=== PATIENT | female | born 1995 | race Caucasian/White ===

== ENCOUNTER 2020-04-02 01:11 | Outpatient (CLI) | payer SELFPAY ==
[2020-04-02 14:01] LABS: HCT 39.9 % (36.0-46.0); HGB 13.2 g/dL (12.0-15.5); Mean Corp. HGB Concentration 33.1 g/dL (32.0-36.0); Mean Corpuscular Hemoglobin 29.6 pg (27.0-33.0); Mean Corpuscular Volume 89.5 fL (80-95); Platelet Count 471 x1000/uL (130-400); RBC 4.46 m/cumm (4.00-5.20); RBC Distribution Width 14.5 % (11.7-14.6); White Blood Cell Count 13.51 k/cumm (4.4-10.8)
[2020-04-02 14:36] LABS: ALT 25 U/L (14-59); AST 12 U/L (15-37); Alkaline Phosphatase 88 U/L (46-116); Anion Gap 15.2 mmol/L (3-11); BUN 15 mg/dL (7-18); Bilirubin, Total 0.2 mg/dL (0.2-1.0); C-Reactive Protein 16.35 mg/dL (0.0-0.3); CO2 16.8 mmol/L (21.0-32.0); CREATININE 1.79 mg/dL (0.55-1.02); Chloride 106 mmol/L (98-107); Glucose 125 mg/dL (74-106); Sodium 138 mmol/L (136-145); TSH (W/Ref FT4) 4.01 uIU/mL (0.36-3.74); Total Protein 7.2 g/dL (6.4-8.2)
[2020-04-02 14:51] LABS: Vitamin D 25 Total 35.5 ng/ml (30-100)
[2020-04-02 14:53] LABS: FREE T4 1.13 ng/dL (0.76-1.46)
[2020-04-02 15:31] LABS: ESR 90 mm/hr (0-20)
[2020-04-02 21:06] LABS: Rheumatoid Factor 22.3 IU/mL (<12.0)
[2020-04-03 10:51] LABS: Lyme Ab w Rflx to Lyme Confirm Negative (Negative)
[2020-04-03 15:33] LABS: ANA Interpretation Negative (Negative)
== END 2020-04-02 01:31 ==
PROVIDERS: PCP Nurse Practitioner; Visit Provider Nurse Practitioner
DX: M25.50 Pain in unspecified joint (principal); M79.10 Myalgia, unspecified site
CPT/HCPCS: 80053; 82306; 85027; 85652; 84439; 84443; 86038; 86140; 86431; 86618

== ENCOUNTER 2020-04-03 13:36 | Outpatient (CLI) | payer SELFPAY ==
[2020-04-03 14:47] LABS: Creatine Kinase 29 U/L (26-192)
[2020-04-03 14:50] LABS: PROTEIN 109.8 mg/dL
[2020-04-03 14:52] LABS: COMMENT (LAB VIEW ONLY) 79.26 mg/dL; Potassium 2.6 mmol/L (3.5-5.1); Prot/Crea Ur Ratio 1.38
[2020-04-04 10:25] LABS: C3 Complement 168 mg/dL (81-157); C4 Complement 35 mg/dL (13-39)
[2020-04-04 15:34] LABS: Chlamydia Result Negative (Negative); GC Result Negative (Negative)
[2020-04-05 12:33] LABS: dsDNA Ab, IgG <12.3 IU/mL (<30.0)
== END 2020-04-03 13:56 ==
PROVIDERS: PCP Nurse Practitioner; Visit Provider Family Medicine
DX: R79.9 Abnormal finding of blood chemistry, unspecified (principal); Z11.3 Encounter for screening for infections with a predominantly sexual mode of transmission; E87.6 Hypokalemia; R53.83 Other fatigue
CPT/HCPCS: 36415; 82550; 87491; 87591; 82565; 84132; 84156; 86160; 86225

== ENCOUNTER 2020-04-05 07:14 | Outpatient (CLI) | payer SELFPAY ==
[2020-04-05 09:42] LABS: Anion Gap 15.4 mmol/L (3-11); BUN 13 mg/dL (7-18); CO2 15.6 mmol/L (21.0-32.0); CREATININE 1.56 mg/dL (0.55-1.02); Calcium 10.2 mg/dL (8.5-10.1); Chloride 105 mmol/L (98-107); Estimated GFR 40.44 (mL/min/1.73m2); Glucose 88 mg/dL (74-106); Potassium 3.1 mmol/L (3.5-5.1); Sodium 136 mmol/L (136-145)
[2020-04-05 18:17] LABS: Cortisol (Baseline) 11 ug/dL (4-23)
[2020-04-06 11:39] LABS: HIV-1/2 Ag & Ab Screen Negative (Negative); Hepatitis A Antibody IgM Negative (Negative); Hepatitis B Core Antibody Negative (Negative); Hepatitis B surface Ag Negative (Negative); Hepatitis C Ab w Rflx HCV PCR Negative (Negative)
[2020-04-09 13:58] LABS: Cryoglobulin, S Negative %ppt (Negative)
== END 2020-04-05 07:34 ==
PROVIDERS: PCP Nurse Practitioner; Visit Provider Nurse Practitioner
DX: E87.6 Hypokalemia (principal); R79.9 Abnormal finding of blood chemistry, unspecified; N17.9 Acute kidney failure, unspecified; Z11.59 Encounter for screening for other viral diseases; Z11.4 Encounter for screening for human immunodeficiency virus [HIV]
CPT/HCPCS: 36415; 80048; 80400; 86704; 86709; 86803; 87340; 87389; 82595

== ENCOUNTER 2021-03-07 02:43 | Outpatient (CLI) | payer MEDICAID, SELFPAY ==
[2021-03-07 11:01] LABS: HCT 42.8 % (36.0-46.0); MCH 28.6 pg (27.0-33.0); MCHC 32.7 % (32.0-36.0); MCV 87.5 fL (80-95); Platelet Count 321 10^3/uL (130-400); RBC 4.89 10^6/uL (3.93-5.22); RDW 13.4 % (11.7-14.6); RDW-SD 42.8 fL; WBC 8.84 10^3/uL (4.4-10.8)
[2021-03-07 12:05] LABS: ALT 30 U/L (14-59); AST 6 U/L (15-37); Albumin 3.2 g/dL (3.4-5.0); Alkaline Phosphatase 87 U/L (46-116); Anion Gap 9.7 mmol/L (3-11); BUN 8 mg/dL (7-18); Bilirubin, Total 0.2 mg/dL (0.2-1.0); CO2 24.3 mmol/L (21.0-32.0); CREATININE 1.3 mg/dL (0.55-1.02); Chloride 109 mmol/L (98-107); Estimated GFR 49.51 (mL/min/1.73m2); Glucose 65 mg/dL (74-106); Potassium 3.5 mmol/L (3.5-5.1); Sodium 143 mmol/L (136-145); Total Protein 6.8 g/dL (6.4-8.2)
== END 2021-03-07 02:44 | disposition home or self-care (01) ==
LOC: LBO 02:43
PROVIDERS: PCP Nurse Practitioner; Visit Provider Nurse Practitioner
DX: N11.8 Other chronic tubulo-interstitial nephritis (principal); R79.89 Other specified abnormal findings of blood chemistry
CPT/HCPCS: 36415; 80053; 85027

== ENCOUNTER 2021-04-03 12:54 | Outpatient (REF) | payer MEDICAID, SELFPAY ==
[2021-04-06 11:14] LABS: Amphetamine 324 ng/mL (Cutoff: 25); Amphetamines Interpretation Positive.; MDA (Ecstasy Metabolite) Negative ng/mL (Cutoff: 25); MDMA (Ecstasy) Negative ng/mL (Cutoff: 25); Methamphetamine Negative ng/mL (Cutoff: 25); Phentermine Negative ng/mL (Cutoff: 25); Pseudoephedrine/Ephedrine Negative ng/mL (Cutoff: 25)
== END 2021-04-03 12:55 | disposition home or self-care (01) ==
LOC: LBN 12:54
PROVIDERS: PCP Nurse Practitioner; Referring Provider Nurse Practitioner; Visit Provider Nurse Practitioner
DX: F90.2 Attention-deficit hyperactivity disorder, combined type (principal); R82.5 Elevated urine levels of drugs, medicaments and biological substances
CPT/HCPCS: 80324

== ENCOUNTER 2021-05-22 12:35 | Outpatient (REF) | payer MEDICAID, SELFPAY | END 2021-05-22 12:36 | disposition home or self-care (01) | LOC: LBN 12:35 | PROVIDERS: PCP Nurse Practitioner; Referring Provider Internal Medicine; Visit Provider Internal Medicine | DX: R10.31 Right lower quadrant pain (principal); R82.998 Other abnormal findings in urine | CPT/HCPCS: 87086 ==

== ENCOUNTER 2022-01-23 14:16 | Outpatient (CLI) | payer MEDICAID, SELFPAY ==
[2022-01-23 11:17] LABS: Bilirubin Negative (Negative); Blood Trace-lysed (Negative); Clarity Sl Cloudy (Clear); Glucose Negative (Negative); Ketones Negative (Negative); Leukocyte Esterase Moderate (Negative); Nitrite Negative (Negative); Urobilinogen 0.2 EU/dL (Up TO 0.2)
[2022-01-23 11:23] LABS: Epithelial Cells Few HPF (Negative); RBC 0-2 HPF (0-2); WBC 20-50 HPF (0-5)
[2022-01-23 11:24] LABS: Bacteria Few HPF (Negative); C & S Indicated? Yes; Casts Negative LPF (Negative); Crystals Negative HPF (Negative); Mucus Negative (Negative)
[2022-01-23 12:13] LABS: ALT 68 U/L (14-59); AST 32 U/L (15-37); Albumin 3.6 g/dL (3.4-5.0); Alkaline Phosphatase 87 U/L (46-116); Anion Gap 11.3 mmol/L (3-11); BUN 20 mg/dL (7-18); Bilirubin, Total 0.3 mg/dL (0.2-1.0); CO2 21.7 mmol/L (21.0-32.0); CREATININE 1.5 mg/dL (0.55-1.02); Chloride 109 mmol/L (98-107); Estimated GFR 41.65 (mL/min/1.73m2); Glucose 76 mg/dL (74-106); Potassium 4.4 mmol/L (3.5-5.1); Sodium 142 mmol/L (136-145); Total Protein 7.2 g/dL (6.4-8.2)
[2022-01-24 17:09] LABS: Rheumatoid Factor <8.6 IU/mL (<12.0)
[2022-01-27 15:13] LABS: ANA Interpretation Negative (Negative)
== END 2022-01-23 14:17 | disposition home or self-care (01) ==
PROVIDERS: PCP Nurse Practitioner; Visit Provider Nurse Practitioner
DX: M25.59 Pain in other specified joint (principal); M79.10 Myalgia, unspecified site; E87.2 Acidosis; E87.6 Hypokalemia
CPT/HCPCS: 36415; 80053; 81003; 81015; 86038; 86431; 87086

== ENCOUNTER 2022-02-06 14:48 | Outpatient (CLI) | payer MEDICAID, SELFPAY ==
[2022-02-06 09:37] LABS: ALT 46 U/L (14-59); AST 17 U/L (15-37); Albumin 3.7 g/dL (3.4-5.0); Alkaline Phosphatase 94 U/L (46-116); Anion Gap 9.3 mmol/L (3-11); BUN 10 mg/dL (7-18); Bilirubin, Total 0.3 mg/dL (0.2-1.0); CO2 22.7 mmol/L (21.0-32.0); CREATININE 1.6 mg/dL (0.55-1.02); Calcium 9.7 mg/dL (8.5-10.1); Chloride 109 mmol/L (98-107); Estimated GFR 38.67 (mL/min/1.73m2); Glucose 98 mg/dL (74-106); Sodium 141 mmol/L (136-145)
--- OUTSIDE RECORDS SUMMARY | 2022-02-06 14:51 | XMS_ITS ---
:1995 Author Care Team Providers Name Role Phone DR. MEDINA Primary Care Provider Unavailable DR. MEDINA Referring Provider Unavailable Allergies Code Code System Name Reaction Severity Status Onset 25431 RxNorm Percocet Hives ? Active ? 13758 RxNorm Sertraline ? ? Active ? Medications Name Status Start Date Stop Date ? ? azithromycin 250 mg tablet Completed ? 08/21 TAKE 2 TABLETS (500 MG) BY ORAL ROUTE O NCE DAILY FOR 1 DAY THEN 1 TABLET (250 MG) BY ORAL ROUTE ONCE DAILY FOR 4 DAYS Bactrim DS 800 mg-160 mg tablet Completed ? 08/29/2018 Take 1 tablet every 12 hours by oral route for 10 days. cyclobenzaprine 10 mg tablet Active ? Not available Take 1 tablet 3 times a day by oral route. Mirena 20 mcg/24 hours (7 yrs) 52 mg intrauterine device Complet ed ? 07/11/2016 Take by intrauterine route. omeprazole 20 mg capsule,delayed release Completed ? 08/21/2016 Take 1 capsule every day by oral route before meals for 90 days . prednisone 20 mg tablet Active ? Not avai lable Take 2 tablets every day by oral route for 4 days. prednisone 50 mg tablet Completed ? 08/21/20 16 Take 1 tablet by oral route for 5 days. ProAir HFA 90 mcg/actuation aerosol inhaler Active 08/12 Not available Inhale 2 puffs every 4 hours by inhalation route as needed. trazodone 100 mg tablet Completed ? 06/26/20 16 Take 1 tablet twice a day by oral route for 30 days. trazodone 150 mg tablet Completed ? 08/21/20 16 Take 1 tablet every day by oral route for 90 days. Wellbutrin XL 300 mg 24 hr tablet, extended release Completed ? 08/21/2016 Take 1 tablet every day by oral route for 90 days. Problems Name Status Onset Date Source ? Gastroesophageal Reflux Disease Active 12/10/2012 ? Fatigue Active 11/12/2013 ? Bacterial Vaginosis Active 03/12/2014 ? Dysplasia of Cervix Active 03/12/2014 ? Carpal Tunnel Syndrome Active 03/22/2014 ? Varicella Active ? ? Obesity Active ? ? Tobacco User Active ? ? Depressive Disorder Active ? ? Chronic Sinusitis Active ? ? Asthma Active ? ? Cholecystitis Active ? ? Urinary Incontinence Active ? ? Adult Health Examination Active ? ? Pain in Right Knee Active ? ? Procedures Date Name Performed by ? 08/10/2014 Knee Surgery Information not avai lable Notes: medial patellofemoral ligament reconstruction by Dr Silver 05/19/2013 Cholecystectomy Information not avai lable Notes: lap ? Elbow Arthroscopy Information not avai lable Notes: elbow fx age 3 with surgical r epair Results Lab Results Date Name Specimen Result Interpretation Description Value Range Status Address ? 12/01/2018 Streptococcus ? Initid negative ? [facility] Culture, A beta Laborato ry Unspecified strept. & Specimen Patholog y: [address] [place] [address] 12/01/2018 Streptococcus Normal Strep negative negati Lauryn Boudreaux Pyogenes Ag, ve Hosp ital QL, HARISH, Laborato ry Throat & Pathology: [address] [place] [address] 08/21/2016 beta-HCG, ? Quantitati <1 mIU/mL ? Fi nal *DO Not Quantitative, ve HCG Use * Ch Serum or Lab: Plasma [facility] 06/20/2016 Urinalysis, ? Color yellow ? Final * DO Not Dipstick, Use* Ch Reflex Micro Lab: [address] [place] [address] ? ? ? Clarity clear ? Final *DO Not Use* Ch Lab: [address] [place] [address] ? ? ? Sp Grav 1.020 1.015- Final *DO Not 1.025 Use* Ch Lab: [address] [place] [address] ? ? ? Ph 7.0 4.6-8. Final *DO Not 0 Use* Ch Lab: [address] [place] [address] ? ? ? Protein negative negati Final *DO No t ve Use* Ch Lab: [address] [place] [address] ? ? ? Glucose negative negati Final *DO No t ve Use* Ch Lab: [address] [place] [address] ? ? ? Ketones negative negati Final *DO No t ve Use* Ch Lab: [address] [place] [address] ? ? ? Bile negative negati Final *DO Not ve Use* Ch Lab: [address] [place] [address] ? ? ? Blood negative negati Final *DO Not ve Use* Ch Lab: [address] [place] [address] ? ? ? Nitrite negative negati Final *DO No t ve Use* Ch Lab: [address] [place] [address] ? ? ? Urobilin 0.2 mg/dL 0-1.0 Final *DO Not mg/dL Use* Ch Lab: [address] [place] [address] ? ? ? Leuk Est negative ? Final *DO N ot negative Use* Ch Lab: [address] [place] [address] 06/20/2016 CT + NG DNA, ? Specimen urine ? Lauryn amador *DO Not PCR, Urine Description U se* Ch Lab: [address] [place] [address] ? ? ? Ch-result see ? Final *DO No t comments Use* Ch Lab: [address] [place] [address] ? ? ? GC-result see ? Final *DO No t comments Use* Ch Lab: [address] [place] [address] 06/08/2016 Urinalysis, ? Color yellow ? Final * DO Not Dipstick, Use* Ch Reflex Micro Lab: [address] [place] [address] ? ? ? Clarity cloudy ? Final *DO Not Use* Ch Lab: [address] [place] [address] ? ? ? Sp Grav 1.015 1.015- Final *DO Not 1.025 Use* Ch Lab: [address] [place] [address] ? ? ? Ph 6.5 4.6-8. Final *DO Not 0 Use* Ch Lab: [address] [place] [address] ? ? ? Protein 1+ negati Final *DO Not ve Use* Ch Lab: [address] [place] [address] ? ? ? Glucose negative negati Final *DO No t ve Use* Ch Lab: [address] [place] [address] ? ? ? Ketones negative negati Final *DO No t ve Use* Ch Lab: [address] [place] [address] ? ? ? Bile negative negati Final *DO Not ve Use* Ch Lab: [address] [place] [address] ? ? ? Blood 1+ negati Final *DO Not ve Use* Ch Lab: [address] [place] [address] ? ? ? Nitrite positive negati Final *DO No t ve Use* Ch Lab: [address] [facility] ? ? ? Urobilin 0.2 mg/dL 0-1.0 Final *DO Not mg/dL Use* Ch Lab: [address] [facility] ? ? ? Leuk Est 2+ ? Final *DO Not negative Use* Ch Lab: [address] [facility] ? ? ? Micrscpc yes ? Final *DO Not Use* Ch Lab: [address] [facility] ? ? ? Urbc 5-10 /hpf ? Final *DO Not Use* Ch Lab: [address] [facility] ? ? ? Wbc 50+ /hpf -5 Final *DO Not /hpf Use* Ch Lab: [address] [facility] ? ? ? Bacteria many ? Final *DO Not Use* Ch Lab: [address] [facility] ? ? ? Squam Ep 10-25 /hpf ? Final *DO Not Use* Ch Lab: [address] [facility] ? ? ? Cultind not ? Final *DO Not indicated Use* Ch Lab: [address] [facility] 06/08/2016 CBC W/ Auto High White 19.5 10 4.8-10 Final *DO Not Diff Blood Count .8 10 Use* Ch Lab: [address] [facility] ? ? ? Rbc 4.99 10 3.90-5 Final *DO Not .03 10 Use* Ch Lab: [address] [facility] ? ? ? Hgb 13.5 g/dL 12.0-1 Final *DO Not 5.5 Use* Ch g/dL Lab: [address] [facility] ? ? ? Hct 41.3 % 36-46 Final *DO Not % Use* Ch Lab: [address] [facility] ? ? ? Mcv 82.8 fL 81-99 Final *DO Not fL Use* Ch Lab: [address] [facility] ? ? ? Mch 27.1 pg 27-32 Final *DO Not pg Use* Ch Lab: [address] [facility] ? ? Low Mchc 32.7 g/dL 33-36 Final *DO Not g/dL Use* Ch Lab: [address] [facility] ? ? ? Rdw 14.6 % 11.6-1 Final *DO Not 4.8 % Use* Ch Lab: [address] [facility] ? ? ? Plt 335 10 150-40 Final *DO Not 0 10 Use* Ch Lab: [address] [facility] ? ? ? Manual yes ? Final *DO Not Differentia Use * Ch l Lab: [address] [facility] ? ? High Neut % 79 % 40-75 Final *DO Not % Use* Ch Lab: [address] [facility] ? ? High Bands % 8 % 0-5 % Final *DO Not Use* Ch Lab: [address] [facility] ? ? Low Lymph % 4 % 20-45 Final *DO Not % Use* Ch Lab: [address] [facility] ? ? ? [place] % 6 % 2-10 % Final *DO Not Use* Ch Lab: [address] [facility] ? ? High Atyp Lym 3 % -0 % Final *DO Not Use* Ch Lab: [address] [facility] ? ? ? Plt Est adequate adequa Final *DO No t te Use* Ch Lab: [address] [facility] ? ? ? Aniso few ? Final *DO Not Use* Ch Lab: [address] [facility] 06/08/2016 Urinalysis, ? Color yellow ? Final * DO Not Dipstick, Use* Ch Reflex Micro Lab: [address] [facility] ? ? ? Clarity slightly ? Final *DO No t adarsh Use* Ch Lab: [address] [facility] ? ? ? Sp Grav 1.015 1.015- Final *DO Not 1.025 Use* Ch Lab: [address] [facility] ? ? ? Ph 7.0 4.6-8. Final *DO Not 0 Use* Ch Lab: [address] [facility] ? ? ? Protein trace negati Final *DO Not ve Use* Ch Lab: [address] [facility] ? ? ? Glucose negative negati Final *DO No t ve Use* Ch Lab: [address] [facility] ? ? ? Ketones negative negati Final *DO No t ve Use* Ch Lab: [address] [facility] ? ? ? Bile negative negati Final *DO Not ve Use* Ch Lab: [address] [place] [address] ? ? ? Blood trace-inta negati Final *DO No t ct ve Use* Ch Lab: [address] [place] [address] ? ? ? Nitrite negative negati Final *DO No t ve Use* Ch Lab: [address] [place] [address] ? ? ? Urobilin 0.2 mg/dL 0-1.0 Final *DO Not mg/dL Use* Ch Lab: [address] [place] [address] ? ? ? Leuk Est 1+ ? Final *DO Not negative Use* Ch Lab: [address] [place] [address] ? ? ? Micrscpc Y ? Final *DO Not Use* Ch Lab: [address] [place] [address] ? ? ? Urbc 3-5 /hpf ? Final *DO Not Use* Ch Lab: [address] [place] [address] ? ? ? Wbc 25-50 /hpf -5 Final *DO No t /hpf Use* Ch Lab: [address] [place] [address] ? ? ? Bacteria moderate ? Final *DO N ot Use* Ch Lab: [address] [place] [address] 06/08/2016 CMP, Serum or ? Glucose 91 mg/dL 74-106 Fi nal *DO Not Plasma mg/dL Use* Ch Lab: [address] [place] [address] ? ? ? Urea 8 mg/dL 7-18 Final *DO Not Nitrogen mg/dL Use* Ch Lab: [address] [place] [address] ? ? ? Creatinine 0.9 mg/dL 0.6-1. Final *D O Not 3 Use* Ch mg/dL Lab: [address] [place] [address] ? ? ? Sodium 137.0 136-14 Final *DO Not mmol/l 8 Use* Ch mmol/l Lab: [address] [place] [address] ? ? ? Potassium 3.7 mmol/l 3.5-5. Final *D O Not 1 Use* Ch mmol/l Lab: [address] [place] [address] ? ? ? Chloride 104 mmol/l 98-107 Final *DO Not mmol/l Use* Ch Lab: [address] [place] [address] ? ? ? Carbon 22 mmol/l 21-32 Final *DO No t Dioxide mmol/l Use* Ch Lab: [address] [place] [address] ? ? ? Calcium 9.0 mg/dL 8.5-10 Final *DO N ot .1 Use* Ch mg/dL Lab: [address] [place] [address] ? ? ? Anion Gap 15 ? Final *DO No t Use* Ch Lab: [address] [place] [address] ? ? Low BUN/crea 8.5 12-20 Final *DO Not Use* Ch Lab: [address] [place] [address] ? ? ? Glomerular >60 ? Final *DO N ot Filtration mL/min/1.7 Us e* Ch Rate 3M2 Lab: [address] [place] [address] ? ? Low SGOT/AST 9 U/L 15-37 Final *DO Not U/L Use* Ch Lab: [address] [place] [address] ? ? ? SGPT/ALT 22 U/L 14-54 Final *DO Not U/L Use* Ch Lab: [address] [place] [address] ? ? ? Alkaline 91 U/L 46-116 Final *DO Not Phosphatase U/L Use* Ch Lab: [address] [place] [address] ? ? ? T. Bili 0.4 mg/dL 0.2-1. Final *DO N ot 0 Use* Ch mg/dL Lab: [address] [place] [address] ? ? ? Alb 3.5 g/dL 3.4-5. Final *DO Not 0 g/dL Use* Ch Lab: [address] [place] [address] ? ? ? Total 7.7 g/dL 6.4-8. Final *DO Not Protein 2 g/dL Use* Ch Lab: [address] [place] [address] ? ? Low A/g Rat 0.8 1.1-1. Final *DO Not 8 Use* Ch Lab: [address] [place] [address] 06/08/2016 Culture, Blood ? No ? ? ? *DO Not observation Use* Ch recorded. Lab: [address] [place] [address] 06/08/2016 Culture, Blood ? No ? ? ? *DO Not observation Use* Ch recorded. Lab: [address] [place] [address] 06/08/2016 Culture, Urine UCC ? Cult UA ? ? Cor rected *DO Not Use* Ch Lab: [address] [facility] [place] Past Encounters None recorded. Social History Tobacco Smoking Status Heavy Tobacco Smoker (10/13 Notes: -less than 1/2 pack per day) per day, 07/11/16 les s than 1/2 PPD 08/21/2016- less than 1/2 daily Vaccine List Vaccine Type Hep B, unspecified formulation [birth year] 03/12/1995 HPV, unspecified formulation 03/24/2007 2007 12/30/2007 meningococcal B, recombinant 09/01/2007 Tdap 05/14/2009 varicella 05/14/2009 Plan of Care Reminders Provider Appointments None ? ? recorded. Lab None ? ? recorded. Referral None ? ? recorded. Procedures None ? ? recorded. Surgeries None ? ? recorded. Imaging None ? ? recorded. Vitals 08/21/2016 03:00PM FOLLOW UP Weight Blood Pressure 116.57 kg 134/60 mm[Hg] 07/11/2016 11:00AM ACUTE - ESTABLISHED Weight Blood Pressure 114.08 kg 128/62 mm[Hg] 06/26/2016 03:40PM FOLLOW UP Weight Blood Pressure 111.58 kg 104/50 mm[Hg]
== END 2022-02-06 14:49 | disposition home or self-care (01) ==
LOC: LBO 14:50
PROVIDERS: PCP Nurse Practitioner; Visit Provider Nurse Practitioner
DX: E87.6 Hypokalemia (principal); Z86.39 Personal history of other endocrine, nutritional and metabolic disease; Z87.39 Personal history of other diseases of the musculoskeletal system and connective tissue
CPT/HCPCS: 36415; 80053

== ENCOUNTER 2022-03-04 09:31 | Outpatient (REF) | payer MEDICAID, SELFPAY ==
--- NOTE | 2022-03-04 09:30 | PAPFT_PTH ---
PATIENT: Olena Spence LOC: N U#:[id number] AGE/SX: 26/F ROOM: RE03/04/[address]: Aishwarya Ardon APRN : 1995 BED: DIS: 03/04/2022 SPEC #: [id number] RECD: 03/04/22 18:34 STATUS: LEEANN REDidi #: [id number] CHRISTOPHER: 03/04/22 09:[address]: Aishwarya Ardon DEPT: [facility] Cytology RECD BY: Mariam Trevino Tissues: 1 - CX/ENDOCX FOR PAP SMEARS Procedures: PAP THIN PREP/[facility] Screening Comments: [id number] (CHLAMYDIA/GC)
[2022-03-06 08:21] LABS: Chlamydia Result Negative (Negative); GC Result Negative (Negative)
== END 2022-03-04 09:32 | disposition home or self-care (01) ==
LOC: LBN 09:31
PROVIDERS: PCP Nurse Practitioner; Visit Provider Nurse Practitioner
DX: Z11.3 Encounter for screening for infections with a predominantly sexual mode of transmission (principal); Z12.4 Encounter for screening for malignant neoplasm of cervix
CPT/HCPCS: 87491; 87591; 88142

== ENCOUNTER 2022-05-01 19:21 | Outpatient (REF) | payer MEDICAID, SELFPAY ==
[2022-05-01 19:33] LABS: HCT 47.5 % (36.0-46.0); HGB 15.1 g/dL (11.2-15.7); MCH 28.8 pg (27.0-33.0); MCHC 31.8 % (32.0-36.0); MCV 91 fL (80-95); MPV 9.8 fL (8.0-11.0); Platelet Count 360 10^3/uL (130-400); RBC 5.25 10^6/uL (3.93-5.22); RDW 12.9 % (11.7-14.6); RDW-SD 42.5 fL; WBC 9.35 10^3/uL (4.4-10.8)
[2022-05-01 19:35] LABS: ESR 17 mm/hr (0-20)
[2022-05-01 20:47] LABS: ALT 66 U/L (14-59); AST 28 U/L (15-37); Albumin 4.2 g/dL (3.4-5.0); Alkaline Phosphatase 101 U/L (46-116); Anion Gap 14.7 mmol/L (3-11); BUN 16 mg/dL (7-18); Bilirubin, Total 0.2 mg/dL (0.2-1.0); CO2 19.3 mmol/L (21.0-32.0); CREATININE 1.6 mg/dL (0.55-1.02); Calcium 9.7 mg/dL (8.5-10.1); Chloride 106 mmol/L (98-107); Estimated GFR 38.67 (mL/min/1.73m2); Glucose 119 mg/dL (74-106); Potassium 3.7 mmol/L (3.5-5.1); Sodium 140 mmol/L (136-145); TSH (W/Ref FT4) 3.65 uIU/mL (0.36-3.74); Vitamin B12 381 pg/mL (193-986)
[2022-05-05 09:20] LABS: Hepatitis B Surface Ag Negative (Negative)
[2022-05-05 10:07] LABS: HIV-1/2 Ag & Ab Screen Negative (Negative)
[2022-05-05 15:40] LABS: ANA Interpretation Negative (Negative)
== END 2022-05-01 19:22 | disposition home or self-care (01) ==
LOC: LBN 19:21
PROVIDERS: PCP Nurse Practitioner; Visit Provider Nurse Practitioner
DX: G62.9 Polyneuropathy, unspecified (principal); N12 Tubulo-interstitial nephritis, not specified as acute or chronic; R74.8 Abnormal levels of other serum enzymes
CPT/HCPCS: 80053; 85027; 85652; 87340; 87389; 82607; 84443; 86038

== ENCOUNTER 2022-06-14 21:20 | Emergency (ER) | payer MEDICAID, SELFPAY ==
[2022-06-14 21:39] VITALS: BP 127/78; PULSE 110; RESP 20; TEMP 36.3; O2SAT 97
--- NOTE | 2022-06-14 21:46 | ED.GENADUL_ITS ---
Discharge Plan Disposition Patient Disposition: HOME Condition: Good Discharge Details Clinical Impression: Folliculitis Primary Care Provider: Aishwarya Ardon ED Provider: Garett Diehl Home Meds and New Rx's Prescriptions: New cephalexin 500 mg capsule 500 mg PO QID 7 Days Qty: 28 0RF clindamycin phosphate 1 % solution 1 applic topical BID Qty: 120 0RF No Action Nexplanon 68 mg implant 1 implant SBD ONCE Rx Instructions: as a single dose aripiprazole [Abilify] 5 mg tablet 5 mg PO DAILY bupropion HCl [Wellbutrin XL] 150 mg tablet extended release 24 hr 150 mg PO DAILY Qty: 90 3RF Rx Instructions: Take with the 300mg tabs for a total of 450mg/day. bupropion HCl [Wellbutrin XL] 300 mg tablet extended release 24 hr 300 mg PO QAM Qty: 90 3RF Rx Instructions: take with 150mg tabs to total 450mg/day. omeprazole 20 mg capsule,delayed release(DR/EC) 20 mg PO DAILY Qty: 90 3RF ketoconazole 2 % shampoo 1 applic topical Q14D PRN (Reason: seborrhea) Qty: 120 0RF amitriptyline 10 mg tablet 10 mg PO QHS Qty: 30 1RF potassium chloride 20 mEq packet 20 meq PO BID Qty: 60 3RF albuterol sulfate [ProAir HFA] 200 PUFF/INH HFA aerosol inhaler 2 puff Inhalation Q4H PRN PRN Discharge Instructions Instructions: Folliculitis (ED) Additional Instructions: At this time you have evidence of a mild infection in your skin pores called folliculitis. Antibiotic has been sent to your pharmacy on file, please take this as prescribed. Additionally you likely have a predisposition to having these infected pores, so please wash daily with the clindamycin wash which we have also sent a prescription for to your pharmacy. Keep the area in your groin and lower abdomen as clean as possible and this dry as possible to prevent these from recurring. If you notice any worsening of your symptoms, or any new symptoms such as vomiting, diarrhea, fever, chills, shortness of breath, chest pain, numbness, weakness, or fainting , please return immediately to the emergency department for reevaluation. Please follow up with your primary care provider as soon as possible for reassessment and reevaluation. As always, it was a pleasure participating in your medical care today. Referrals: Aishwarya Ardon, GÓMEZ [Primary Care Provider] - Medical Decision Making This is a 27-year-old female with a past medical history of prior cocaine abuse, depression, hypokalemia, myalgias, GERD, asthma, who presents today for evaluation of lesions/ulcers on her skin on her abdomen and vaginal area. Patient denies any history of STDs. She states that over the last year she has occasionally developed small lesions which started out as infected follicles, and then usually pop and subsequently drained some fluid. She currently has 1 lesion down by her vagina on her left side of vulva, and the second lesion on the panel fold of her left lower abdomen. She denies any other complaints at this time. She denies any fever or chills. She denies any family history of Behcet's disease or autoimmune diseases. She denies any burning when she pees, conjunctivitis, irritation in her eyes, abdominal pain, vaginal discharge, or other complaints. Physical exam demonstrates 4 small areas of folliculitis, 1 is located in the left panel fold, with removal of the top of the skin in that area. No active purulent drainage at this time. Below that on the left lateral vulva is another lesion that appears to be consistent with mild early folliculitis. There are 2 older scarred lesions on the suprapubic area that appear similar to previously infected folliculitis areas that have subsequently resolved. No evidence of genital lesions otherwise. Symptoms consistent with mild folliculitis. Symptoms are inconsistent with syphilis, or herpes. No current clinical evidence of staph scalded skin syndr ome, erythema multiforme, erythema migrans, toxic epidermal necrolysis, Thomason- Moustapha syndrome, Kawasaki-like rash, meningococcemia, pemphigus vulgaris, or necrotizing fasciitis. Will recommend clindamycin wash for those areas, will give a prescription of Keflex for the minor infection that is present. Recommend close follow-up with PCP. Discussed red flags for which to return. I have extensively reviewed the treatment plan and discharge instructions with the patient. I have addressed all patient concerns at this time. The patient was made aware of what symptoms to monitor for that would warrant a return to the emergency department. Discussed the plan with the patient, they demonstrate verbal understanding and agreement with our assessment and plan at this time. The documentation in this chart was dictated using [employer] dictation software. Please excuse any dictation errors. HPI General Date/Time Provider Initiated Documentation: 06/14/22 21:25 . HPI Narrative: This is a 27-year-old female with a past medical history of prior cocaine abuse, depression, hypokalemia, myalgias, GERD, asthma, who presents today for evaluation of lesions/ulcers on her skin on her abdomen and vaginal area. Patient denies any history of STDs. She states that over the last year she has occasionally developed small lesions which started out as infected follicles, and then usually pop and subsequently drained some fluid. She currently has 1 lesion down by her vagina on her left side of vulva, and the second lesion on the panel fold of her left lower abdomen. She denies any other complaints at this time. She denies any fever or chills. She denies any family history of Behcet's disease or autoimmune diseases. She denies any burning when she pees, conjunctivitis, irritation in her eyes, abdominal pain, vaginal discharge, or other complaints. Related Data Home Medications Medication Instructions Recorded Confirmed albuterol sulfate 90 mcg/actuation 2 puff inhalation Q4H PRN PRN 04/15/18 05/01/22 aerosol inhaler (ProAir HFA) etonogestrel 68 mg subdermal 1 implant subdermal ONCE 06/14/20 05/01/22 implant (Nexplanon) aripiprazole 5 mg tablet (Abilify) 5 mg PO DAILY 10/15/21 05/01/22 bupropion HCl 150 mg 24 hr tablet, 150 mg PO DAILY #90 tabs 10/15/21 05/01/22 extended release (Wellbutrin XL) bupropion HCl 300 mg 24 hr tablet, 300 mg PO QAM depression #90 tabs 10/15/21 05/01/22 extended release (Wellbutrin XL) ketoconazole 2 % shampoo 1 applic topical Q14D PRN 10/15/21 05/01/22 seborrhea #120 mL omeprazole 20 mg capsule,delayed 20 mg PO DAILY #90 caps 10/15/21 05/01/22 release amitriptyline 10 mg tablet 10 mg PO QHS #30 tabs 05/05/22 potassium chloride 20 mEq oral 20 meq PO BID #60 ea 05/05/22 packet cephalexin 500 mg capsule 500 mg PO QID 7 days #28 caps 06/14/22 clindamycin phosphate 1 % topical 1 applic topical BID #120 mL 06/14/22 solution Previous Rx's Medication Instructions Recorded bupropion HCl 150 mg 24 hr tablet, 150 mg PO DAILY #90 tabs 10/15/21 extended release (Wellbutrin XL) bupropion HCl 300 mg 24 hr tablet, 300 mg PO QAM depression #90 tabs 10/15/21 extended release (Wellbutrin XL) ketoconazole 2 % shampoo 1 applic topical Q14D PRN 10/15/21 seborrhea #120 mL omeprazole 20 mg capsule,delayed 20 mg PO DAILY #90 caps 10/15/21 release amitriptyline 10 mg tablet 10 mg PO QHS #30 tabs 05/05/22 potassium chloride 20 mEq oral 20 meq PO BID #60 ea 05/05/22 packet cephalexin 500 mg capsule 500 mg PO QID 7 days #28 caps 06/14/22 clindamycin phosphate 1 % topical 1 applic topical BID #120 mL 06/14/22 solution Allergies Allergy/AdvReac Type Severity Reaction Status Date / Time acetaminophen [From Percocet] Allergy Intermediate hives Verified 05/01/22 14:29 lamotrigine Allergy Intermediate Skin Rash Verified 05/01/22 14:29 oxycodone [From Percocet] Allergy Intermediate hives Verified 05/01/22 14:29 sertraline AdvReac Unknown Paranoia Verified 05/01/22 14:29 General Stated Complaint: RashLesion FARHANA: 4 Review of Systems All systems reviewed & are unremarkable except as noted in HPI and below PFSH All Active Problems Folliculitis (Acute) Cocaine abuse (Acute) Snoring (Acute) Daytime somnolence (Acute) Mood disorder (Acute) Abnormal blood chemistry (Acute) Interstitial nephritis (Acute) Social anxiety disorder (Acute) Generalized anxiety disorder (Acute) Major depressive disorder, recurrent, moderate (Acute) ADHD (attention deficit hyperactivity disorder), combined type (Acute) Myofascial pain (Acute) Sacroiliac joint dysfunction (Acute) Spondylosis of lumbar region without myelopathy or radiculopathy (Acute) Chronic midline low back pain without sciatica (Acute) Hypercalcemia (Acute) 08/2020 [facility] [place] [facility] Renal insufficiency (Chronic) 08[place] [facility] [place] Hidradenitis suppurativa (Acute) GRACE (acute kidney injury) (Acute) Hypokalemia (Acute) Abnormal blood chemistry (Acute) Myalgia (Acute) Joint pain (Acute) Obesity (Chronic) Tobacco abuse (Chronic) Urinary incontinence (Acute) Chronic sinusitis (Acute) Gastroesophageal reflux (Chronic) Fatigue (Acute) Asthma (Chronic) Cholecystitis (Acute) Medical History Depressive disorder Surgical History History of arthroscopic surgery of elbow Hx of cholecystectomy (~05/19/13) Hx of knee surgery (~08/10/14) Medial patellofemoral ligament reconstruction by Family History Maternal Grandmother Hypertension COPD (chronic obstructive pulmonary disease) Father Diabetes Hyperlipidemia Hypertension Depression Paternal Grandfather Diabetes Maternal Grandfather Diabetes Hypertension COPD (chronic obstructive pulmonary disease) Lung cancer Mother Diabetes Anxiety Bipolar disorder Social History Smoking/Tobacco Use Status: Current every day Tobacco: How many years used: 13 Quit status: considering quitting Second Hand Exposure: Yes Smoking risk assessment performed?: Yes Alcohol Intake: current Alcohol Intake frequency: a few times a month Drug use: Rarely Substance use type: marijuana and crack/cocaine Adopted: No Caregiver/Support person: No Foster care: No Household members: significant other and children Housing: apartment Number of Children: 2 Communication Needs: Corrective Lenses Education Level: middle school Do you need help understanding health information?: Rarely current occupation: stay at home mom Pets and animals: Yes Pets and animals: cat(s) Sexually active: Yes Do you think of yourself as: straight/heterosexual Current gender identity: female What is your relationship status?: never How often do you talk on the phone with friends or family?: three or more times per week How often do you get together with friends or relatives?: three or more times per week Do you belong to any clubs or organized social groups?: no Panel score (0-1 are the most socially isolated patients): 1 What type of physical activity do you participate in: none Special home needs: No Seatbelt use: never Helmet use: No Drive intox or ride w/intox 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 3.ENT: Atraumatic external nose and ears. Moist MM. Neck: Symmetric, trachea midline, No thyromegaly. 4.CVS: +S1/S2, No murmurs or gallops. Peripheral pulses 2+ and equal in all extremities. Brisk capillary refill in all extremities. 5.RESP: Unlabored respiratory effort. Clear to auscultation bilaterally. No wheezes rales or rhonchi 6.GI: Soft, Nontender/Nondistended, No hepatosplenomegaly. No guarding or rebound. 7.MSK: Normocephalic/Atraumatic, Extremities w/o deformity or ttp No cyanosis or clubbing, Normal movement of all extremities 8.Skin: Patient's skin demonstrates 4 small areas of folliculitis, 1 is located in the left panel fold, with removal of the top of the skin in that area. No active purulent drainage at this time. Below that on the left lateral vulva is another lesion that appears to be consistent with mild early folliculitis. There are 2 older scarred lesions on the suprapubic area that appear similar to previously infected folliculitis areas that have subsequently resolved. No evidence of genital lesions otherwise. No oral lesions. No vaginal mucosal lesions. Negative Nikolsky sign. No large vesicles or bulla. No palpable purpura. No oral lesions. No mucosal lesions. No evidence of severe cellulitis. No evidence of vaccine preventable rash. 9.Neuro: senior compensation analyst II-XII grossly intact. Sensation grossly intact, no focal neurologic deficits. 10.Psych: (AAO) x3. Appropriate mood and affect Course Vital Signs Vital signs: Vital Signs Temperature 36.3 C L 06/14/22 21:39 Pulse 110 H 06/14/22 21:39 Respiratory Rate 20 06/14/22 21:39 Blood Pressure 127/78 06/14/22 21:39 Pulse Oximetry 97 06/14/22 21:39 Temperature 36.3 C L 06/14/22 21:39 Temperature Source Temporal Artery Scan 06/14/22 21:39 Pulse 110 H 06/14/22 21:39 Respiratory Rate 20 06/14/22 21:39 Respiratory Effort 06/14/22 21:42 Blood Pressure 127/78 06/14/22 21:39 Blood Pressure Position Sitting 06/14/22 21:39 Pulse Oximetry 97 06/14/22 21:39 Oxygen Delivery Method Room Air 06/14/22 21:39 Oxygen Flow Rate 0 06/14/22 21:39 Pain Level 4 06/14/22 21:39
== END 2022-06-15 02:25 | disposition home or self-care (01) ==
PROVIDERS: Emergency Provider Student in an Organized Health Care Education/Training Program; PCP Nurse Practitioner
DX: L73.9 Follicular disorder, unspecified (principal); J45.909 Unspecified asthma, uncomplicated; F17.200 Nicotine dependence, unspecified, uncomplicated
CPT/HCPCS: 99283; 99284

== ENCOUNTER → 2022-08-22 00:34 | Outpatient (CLI) | payer MEDICAID, SELFPAY ==
--- NOTE | 2022-08-22 07:15 | DI.MRI_ITS ---
Exam(s) MR LUMBAR SPINE WO EXAM: MR LUMBAR SPINE WO CLINICAL HISTORY: L back pain with b/l LE burning,m54.5. TECHNIQUE: Multiplanar multisequence MRI of the Lumbar spine was performed. COMPARISON: No exams were available for comparison FINDINGS: Five lumbar vertebrae are presumed. Conus medullaris is at normal level. There is no evidence of conus mass nor subjacent clumping of in trathecal nerve roots to suggest arachnoiditis. The distal thecal sac appears unremarkable.There is no evidence of Tarlov intrasacral cysts nor other significant findings within the sacral canal Bones:There are no fractures nor ominous osseous lesions in the lumbar vertebral bodies and visualize d sacrum. With respect to the individual levels... T12-L1: Unremarkable L1-2: Mildly decreased disc height. There are Modic type 1 sub endplate marrow changes anteriorly at L1 level. Mild posterior annular bulging but without a prominent disc herniation and central canal dimensions are lower normal at this level. No significant foraminal stenosis. No significant facet arthropathy. L2-3: Normal disc height. No disc herniation nor central canal stenosis.No foraminal stenosis.No face t arthropathy. L3-4: Normal disc height. No disc herniation or central canal stenosis.No foraminal stenosis.No face t arthropathy. L4-5: Normal disc height and signal. No disc herniation or spinal canal stenosis. No foraminal sten osis. No facet arthropathy. L5-S1: Normal disc height and signal. No disc herniation or spinal canal stenosis. No foraminal el nosis. No facet arthropathy. Soft tissues: paraspinal soft tissues appear unremarkable. IMPRESSION: 1. At the L1-2 level there is mild posterior annular bulging but no large disc herniation and the susan tral canal dimensions are lower normal. There is no foraminal stenosis nor facet arthropathy at this level. 2. All other levels appear unremarkable. DATA REPOSITORY:
== END ==
PROVIDERS: PCP Nurse Practitioner; Visit Provider Psychiatry & Neurology Neurology
DX: G89.29 Other chronic pain (principal); M54.59 Other low back pain
CPT/HCPCS: 72148

== ENCOUNTER 2022-09-09 04:04 | Outpatient (CLI) | payer MEDICAID, SELFPAY ==
[2022-09-09 10:37] LABS: Anion Gap 7.7 mmol/L (3-11); BUN 17 mg/dL (7-18); CO2 26.3 mmol/L (21.0-32.0); CREATININE 1.4 mg/dL (0.55-1.02); Calcium 9.9 mg/dL (8.5-10.1); Chloride 103 mmol/L (98-107); Estimated GFR 52.55 (mL/min/1.73m2); Glucose 92 mg/dL (74-106); Magnesium 1.8 mg/dL (1.8-2.4); Potassium 3.6 mmol/L (3.5-5.1); Sodium 137 mmol/L (136-145)
[2022-09-09 11:13] LABS: Vitamin D 25 Total 35.6 ng/mL (30-100)
[2022-09-10 10:05] LABS: Lyme Ab w Rflx to Lyme Confirm Negative (Negative)
[2022-09-11 18:18] LABS: Anaplasma phagocytophilum Negative (Negative); B. miyamotoi PCR Negative (Negative); Babesia divergens/MO-1 Negative (Negative); Babesia duncani Negative (Negative); Babesia microti Negative (Negative); Ehrlichia chaffeensis Negative (Negative); Ehrlichia ewingii/canis Negative (Negative); Ehrlichia muris eauclairensis Negative (Negative)
== END 2022-09-09 04:05 | disposition home or self-care (01) ==
LOC: LBO 04:04
PROVIDERS: PCP Nurse Practitioner; Visit Provider Nurse Practitioner
DX: M79.18 Myalgia, other site (principal); G89.29 Other chronic pain; E55.9 Vitamin D deficiency, unspecified; M54.59 Other low back pain; M79.601 Pain in right arm; M79.602 Pain in left arm; M79.604 Pain in right leg; M79.605 Pain in left leg
CPT/HCPCS: 36415; 80048; 82306; 87798; 83735; 86618

== ENCOUNTER 2022-12-30 02:48 | Outpatient (CLI) | payer MEDICAID, SELFPAY ==
[2022-12-30 08:14] LABS: Abs Immature Grans 0.02 10^3/uL (0.0-0.06); Absolute Basophil Count 0.04 10^3/uL (0.0-0.2); Absolute Eosinophil Count 0.37 10^3/uL (0.0-0.7); Absolute Lymphocyte Count 2.49 10^3/uL (1.2-3.4); Absolute Monocyte Count 0.57 10^3/uL (0.1-0.8); Absolute Neutrophil Count 5.66 10^3/uL (1.2-6.7); Basophils % 0.4; HCT 50.8 % (36.0-46.0); HGB 16.1 g/dL (11.2-15.7); Immature Grans % 0.2; Lymphocytes % 27.2; MCH 27.7 pg (27.0-33.0); MCHC 31.7 % (32.0-36.0); MCV 87 fL (80-95); MPV 9.3 fL (8.0-11.0); Monocytes % 6.2; Platelet Count 332 10^3/uL (130-400); RBC 5.81 10^6/uL (3.93-5.22); RDW 13.3 % (11.7-14.6); RDW-SD 42.6 fL; WBC 9.15 10^3/uL (4.4-10.8)
[2022-12-30 09:39] LABS: ALT 51 U/L (14-59); AST 16 U/L (15-37); Albumin 3.9 g/dL (3.4-5.0); Alkaline Phosphatase 104 U/L (46-116); Anion Gap 7.9 mmol/L (3-11); BUN 19 mg/dL (7-18); Bilirubin, Total 0.3 mg/dL (0.2-1.0); CO2 27.1 mmol/L (21.0-32.0); CREATININE 1.5 mg/dL (0.55-1.02); Calcium 9.5 mg/dL (8.5-10.1); Calculated LDL 51 mg/dL (<100); Chloride 105 mmol/L (98-107); Cholesterol 110 mg/dL (<200); Estimated GFR 48.38 (mL/min/1.73m2); Glucose 91 mg/dL (74-106); HDL Cholesterol 36 mg/dL (40-60); Sodium 140 mmol/L (136-145); Total Protein 7.9 g/dL (6.4-8.2); Triglyceride 118 mg/dL (<150)
== END 2022-12-30 02:49 | disposition home or self-care (01) ==
LOC: LBO 02:48
PROVIDERS: PCP Nurse Practitioner; Referring Provider Nurse Practitioner; Visit Provider Nurse Practitioner
DX: N18.2 Chronic kidney disease, stage 2 (mild) (principal); R79.89 Other specified abnormal findings of blood chemistry; E66.01 Morbid (severe) obesity due to excess calories; Z68.41 Body mass index [BMI] 40.0-44.9, adult
CPT/HCPCS: 36415; 80053; 80061; 85025

== ENCOUNTER 2023-01-27 02:36 | Outpatient (CLI) | payer MEDICAID, SELFPAY ==
[2023-01-27 14:39] LABS: Abs Immature Grans 0.03 10^3/uL (0.0-0.06); Absolute Basophil Count 0.05 10^3/uL (0.0-0.2); Absolute Eosinophil Count 0.47 10^3/uL (0.0-0.7); Absolute Lymphocyte Count 2.77 10^3/uL (1.2-3.4); Absolute Monocyte Count 0.59 10^3/uL (0.1-0.8); Absolute Neutrophil Count 5.85 10^3/uL (1.2-6.7); Basophils % 0.5; Eosinophils % 4.8; HCT 48.5 % (36.0-46.0); HGB 15.7 g/dL (11.2-15.7); Immature Grans % 0.3; Lymphocytes % 28.4; MCH 28.2 pg (27.0-33.0); MCHC 32.4 % (32.0-36.0); MCV 87 fL (80-95); MPV 9.2 fL (8.0-11.0); Platelet Count 327 10^3/uL (130-400); RBC 5.57 10^6/uL (3.93-5.22); RDW 14.1 % (11.7-14.6); RDW-SD 44.6 fL; WBC 9.76 10^3/uL (4.4-10.8)
[2023-01-27 14:39] LABS: Bilirubin Negative (Negative); Blood Trace-intact (Negative); Clarity Clear (Clear); Glucose Negative (Negative); Ketones Negative (Negative); Leukocyte Esterase Moderate (Negative); Nitrite Negative (Negative); Specific Gravity 1.015 (1.005-1.025); Urobilinogen 0.2 mg/dL (Up to 0.2); pH 6.5 (5-8)
[2023-01-27 14:43] LABS: ESR 2 mm/hr (0-20)
[2023-01-27 14:43] LABS: Lab Add On Test DONE
[2023-01-27 14:49] LABS: Bacteria Few HPF (Negative); C & S Indicated? Yes; Casts Negative LPF (Negative); Crystals Negative HPF (Negative); Epithelial Cells Few HPF (Negative); Mucus Negative (Negative); RBC 0-2 HPF (0-2); WBC 20-50 HPF (0-5)
[2023-01-27 15:17] LABS: Albumin 3.9 g/dL (3.4-5.0); Anion Gap 7.2 mmol/L (3-11); BUN 13 mg/dL (7-18); CO2 25.8 mmol/L (21.0-32.0); CREATININE 1.4 mg/dL (0.55-1.02); Calcium 9.7 mg/dL (8.5-10.1); Chloride 107 mmol/L (98-107); Estimated GFR 52.55 (mL/min/1.73m2); Glucose 78 mg/dL (74-106); PHOSPHORUS 3.6 mg/dL (2.6-4.7); Potassium 3.9 mmol/L (3.5-5.1); Sodium 140 mmol/L (136-145); Uric Acid 6.7 mg/dL (2.6-6.0)
[2023-01-27 15:22] LABS: COMMENT (LAB VIEW ONLY) 61.01 mg/dL
[2023-01-27 15:36] LABS: COMMENT (LAB VIEW ONLY) 62.96 mg/dL; PROTEIN 16.1 mg/dL; Prot/Crea Ur Ratio 0.25
[2023-01-27 16:02] LABS: Vitamin D 25 Total 41.3 ng/mL (30-100)
[2023-01-27 17:23] LABS: Ferritin 29 ng/mL (8-252)
[2023-01-27 22:33] LABS: Parathyroid Hormone,Intact 18 pg/mL (19-88)
[2023-01-29 13:46] LABS: Erythropoietin 9.6 mIU/mL (2.6 - 18.5)
== END 2023-01-27 02:37 | disposition home or self-care (01) ==
LOC: LBO 02:37
PROVIDERS: PCP Nurse Practitioner; Visit Provider Nurse Practitioner
DX: R71.8 Other abnormality of red blood cells (principal); R79.9 Abnormal finding of blood chemistry, unspecified
CPT/HCPCS: 36415; 80048; 82306; 82668; 85652; 81003; 81015; 82040; 82043; 82565; 82570; 82728; 83970; 84100; 84156; 84550; 85025; 87086

== ENCOUNTER 2023-03-16 09:40 | Outpatient (CLI) | payer MEDICAID, SELFPAY ==
--- NOTE | 2023-03-16 09:30 | RT.EKG_ITS ---
APPROVED REPORT Exam: Resting ECG Reason for Exam: Pt on stimulant Patient Location: O HR:90 bpm ECG Measurements Heart Rate 90 AXIS LA 195 P 64 QRSd 99 QRS 74 QT 369 T 55 QTc 452 Conclusion Sinus rhythm...normal P axis, V-rate 50- 99 Low voltage, precordial leads...precordial leads <1.0mV Abnormal Q suggests anterior infarct...Q >30mS in V2-V4 Normal Electrocardiogram
== END 2023-03-16 09:41 | disposition home or self-care (01) ==
LOC: DI.KIM 09:42
PROVIDERS: PCP Nurse Practitioner; Visit Provider Nurse Practitioner
DX: Z51.81 Encounter for therapeutic drug level monitoring (principal)
CPT/HCPCS: 93010

== ENCOUNTER 2023-08-12 05:11 | Outpatient (CLI) | payer MEDICAID, SELFPAY ==
[2023-08-12 08:04] LABS: Abs Immature Grans 0.04 10^3/uL (0.0-0.06); Absolute Basophil Count 0.06 10^3/uL (0.0-0.2); Absolute Monocyte Count 0.52 10^3/uL (0.1-0.8); Absolute Neutrophil Count 4.63 10^3/uL (1.2-6.7); Basophils % 0.8; Eosinophils % 5.2; HCT 46.5 % (36.0-46.0); HGB 14.4 g/dL (11.2-15.7); Immature Grans % 0.5; Lymphocytes % 27.1; MCH 27.1 pg (27.0-33.0); MCV 88 fL (80-95); MPV 8.8 fL (8.0-11.0); Monocytes % 6.7; Neutrophils % 59.7; Platelet Count 335 10^3/uL (130-400); RBC 5.31 10^6/uL (3.93-5.22); RDW 14.4 % (11.7-14.6); RDW-SD 46.5 fL; WBC 7.75 10^3/uL (4.4-10.8)
[2023-08-12 08:05] LABS: Bilirubin Negative (Negative); Blood Trace-intact (Negative); Clarity Sl Cloudy (Clear); Glucose Negative (Negative); Ketones Negative (Negative); Leukocyte Esterase Moderate (Negative); Nitrite Negative (Negative); Urobilinogen 0.2 mg/dL (Up to 0.2); pH 6.5 (5-8)
[2023-08-12 08:12] LABS: Bacteria Few HPF (Negative); C & S Indicated? Yes; Casts Negative LPF (Negative); Crystals Negative HPF (Negative); Epithelial Cells Rare HPF (Negative); Mucus Trace (Negative)
[2023-08-12 08:16] LABS: COMMENT (LAB VIEW ONLY) 67.54 mg/dL; PROTEIN 16.4 mg/dL; Prot/Crea Ur Ratio 0.24
[2023-08-12 08:18] LABS: COMMENT (LAB VIEW ONLY) 68.36 mg/dL; Microalb ug/mg Crea 39.2 ug/mg Cr
[2023-08-12 08:23] LABS: Albumin 3.6 g/dL (3.4-5.0); Anion Gap 9.7 mmol/L (3-11); BUN 14 mg/dL (7-18); CO2 25.3 mmol/L (21.0-32.0); CREATININE 1.3 mg/dL (0.55-1.02); Calcium 9.5 mg/dL (8.5-10.1); Chloride 103 mmol/L (98-107); Estimated GFR 57.09 (mL/min/1.73m2); Glucose 87 mg/dL (74-106); PHOSPHORUS 3.6 mg/dL (2.6-4.7); Potassium 3.8 mmol/L (3.5-5.1); Sodium 138 mmol/L (136-145); Uric Acid 6.9 mg/dL (2.6-6.0)
[2023-08-12 08:46] LABS: Vitamin D 25 Total 40.1 ng/mL (30-100)
[2023-08-12 18:25] LABS: Parathyroid Hormone,Intact 22 pg/mL (19-88)
== END 2023-08-12 05:12 | disposition home or self-care (01) ==
PROVIDERS: PCP Nurse Practitioner; Visit Provider Nurse Practitioner Family
DX: E87.6 Hypokalemia (principal); N18.9 Chronic kidney disease, unspecified
CPT/HCPCS: 36415; 80048; 82306; 81003; 81015; 82040; 82043; 82565; 82570; 83970; 84100; 84156; 84550; 85025; 87086

== ENCOUNTER 2023-10-13 18:39 | Emergency (ER) | payer MEDICAID, SELFPAY ==
[2023-10-13 18:41] VITALS: BP 150/88; PULSE 103; RESP 18; TEMP 36.2; O2SAT 99
--- NOTE | 2023-10-13 18:59 | W.ED.GENAD ---
HPI General Stated Complaint: RashLesion Mode of arrival: ambulatory. FARHANA: 3 Date/Time Provider Initiated Documentation: 10/13/23 18:46. Limitations to Documentation: no limitations. Information obtained by: patient. History of Present Illness rash moderate aching day(s) (3) constant No relieving factors improve symptom(s), No exacerbating factors reported no other symptoms. none Related Data Home Medications Medication Instructions Recorded Confirmed albuterol sulfate 90 mcg/actuation 2 puff inhalation Q4H PRN PRN 04/15/18 10/13/23 aerosol inhaler (ProAir HFA) ketoconazole 2 % shampoo 1 applic topical Q14D PRN 07/02/22 10/13/23 seborrhea #120 mL spironolactone 25 mg tablet 12.5 mg PO DAILY 07/31/22 10/13/23 dulaglutide 0.75 mg/0.5 mL 0.75 mg subcut QWEEK 09/29/22 10/13/23 subcutaneous pen injector (Trulicity) naltrexone 4.5 mg PO DAILY 06/03/23 10/13/23 omeprazole 40 mg capsule,delayed 40 mg PO DAILY #90 caps 06/22/23 10/13/23 release pregabalin 150 mg capsule 150 mg PO TID #84 caps 07/21/23 10/13/23 dextroamphetamine-amphetamine 20 20 mg PO TID #84 tabs 08/26/23 10/13/23 mg tablet dextroamphetamine-amphetamine 20 20 mg PO TID #84 tabs 08/26/23 10/13/23 mg tablet dextroamphetamine-amphetamine 20 20 mg PO TID #84 tabs 08/26/23 10/13/23 mg tablet potassium chloride 20 mEq 20 meq PO DAILY #60 tabs 09/21/23 10/13/23 tablet,extended release bupropion HCl 300 mg 24 hr tablet, 300 mg PO QAM depression #90 tabs 09/28/23 10/13/23 extended release (Wellbutrin XL) cyclobenzaprine 5 mg tablet 5 mg PO TID PRN muscle spasm #30 10/07/23 10/13/23 tabs sulfamethoxazole 800 1 tab PO BID #14 tabs 10/13/23 mg-trimethoprim 160 mg tablet (Bactrim DS) Previous Rx's Medication Instructions Recorded ketoconazole 2 % shampoo 1 applic topical Q14D PRN 07/02/22 seborrhea #120 mL omeprazole 40 mg capsule,delayed 40 mg PO DAILY #90 caps 06/22/23 release pregabalin 150 mg capsule 150 mg PO TID #84 caps 07/21/23 dextroamphetamine-amphetamine 20 20 mg PO TID #84 tabs 08/26/23 mg tablet dextroamphetamine-amphetamine 20 20 mg PO TID #84 tabs 08/26/23 mg tablet dextroamphetamine-amphetamine 20 20 mg PO TID #84 tabs 08/26/23 mg tablet potassium chloride 20 mEq 20 meq PO DAILY #60 tabs 09/21/23 tablet,extended release bupropion HCl 300 mg 24 hr tablet, 300 mg PO QAM depression #90 tabs 09/28/23 extended release (Wellbutrin XL) cyclobenzaprine 5 mg tablet 5 mg PO TID PRN muscle spasm #30 10/07/23 tabs sulfamethoxazole 800 1 tab PO BID #14 tabs 10/13/23 mg-trimethoprim 160 mg tablet (Bactrim DS) Allergies Allergy/AdvReac Type Severity Reaction Status Date / Time acetaminophen [From Percocet] Allergy Intermediate hives Verified 10/13/23 18:46 lamotrigine Allergy Intermediate Skin Rash Verified 10/13/23 18:46 oxycodone [From Percocet] Allergy Intermediate hives Verified 10/13/23 18:46 sertraline AdvReac Unknown Paranoia Verified 10/13/23 18:46 Review of Systems All systems reviewed & are unremarkable except as noted in HPI and below Constitutional Constitutional: Denies chills, Denies fever(s) and Denies weakness Cardiovascular Cardiovascular: Denies chest pain and Denies dyspnea Respiratory Respiratory: Denies cough and Denies dyspnea Gastrointestinal Gastrointestinal: Denies abdominal pain, Denies nausea and Denies vomiting Integumentary/Breasts Skin/Breast: Reports rash Neurologic Neurologic: Denies weakness [facility] All Active Problems (Updated 10/13/23 @ 19:03 by Tyson Glover MD) Cellulitis (Acute) Abdominal wall cellulitis (Acute) Sacroiliac joint dysfunction of both sides (Acute) 03/25/23 [facility] Mild obstructive sleep apnea (Acute) 03/12/23 [facility] Sleep note 03/13/23 Polysomnogram Study Refraction error (Acute ~11/2022) 11/25/22 [facility] [place] (degenerative) of macula, bilateral (Acute ~11/2022) 11/25/22 [facility] [place] of both optic discs (Acute ~11/2022) 11/25/22 Oph Insulin resistance (Acute) Nonalcoholic fatty liver disease (Chronic) Hypothyroidism, unspecified (Chronic ~06/2022) Vitamin D deficiency, unspecified (Acute ~06/2022) Chronic kidney disease, stage 2 (mild) (Acute) 07/03/22 02/03/23 Nephrology Abnormal LFTs (Acute ~06/2022) Tobacco use (Acute) Class 3 severe obesity due to excess calories with body mass index (BMI) of 40.0 to 44.9 in adult (Acute ~06/2022) 07/02/22 [facility] Cocaine abuse (Acute) Snoring (Acute) Daytime somnolence (Acute) Mood disorder (Acute) Abnormal blood chemistry (Acute) Interstitial nephritis (Acute) Social anxiety disorder (Acute) Generalized anxiety disorder (Acute) Major depressive disorder, recurrent, moderate (Acute) ADHD (attention deficit hyperactivity disorder), combined type (Acute) Myofascial pain (Acute) Sacroiliac joint dysfunction (Acute) Spondylosis of lumbar region without myelopathy or radiculopathy (Acute) Chronic midline low back pain without sciatica (Acute) Hypercalcemia (Acute) 08/2020 [facility] [place] [facility]- mild Renal insufficiency (Chronic) [place] [facility] [place] Hidradenitis suppurativa (Acute) GRACE (acute kidney injury) (Acute) Hypokalemia (Acute) Abnormal blood chemistry (Acute) Myalgia (Acute) Joint pain (Acute) Tobacco abuse (Chronic) Urinary incontinence (Acute) Chronic sinusitis (Acute) Gastroesophageal reflux (Chronic) Fatigue (Acute) Asthma (Chronic) Cholecystitis (Acute) Medical History (Updated 10/13/23 @ 19:03 by Tyson Glover MD) Depressive disorder Surgical History Hx of cholecystectomy (~05/19/13) Hx of knee surgery (~08/10/14) Medial patellofemoral ligament reconstruction by History of arthroscopic surgery of elbow Family History Maternal Grandmother Hypertension COPD (chronic obstructive pulmonary disease) Father Diabetes Hyperlipidemia Hypertension Depression Paternal Grandfather Diabetes Maternal Grandfather Diabetes Hypertension COPD (chronic obstructive pulmonary disease) Lung cancer Mother Diabetes Anxiety Bipolar disorder Social History Smoking/Tobacco Use Status: Current every day Tobacco: How many years used: 13 Quit status: considering quitting Second Hand Exposure: Yes Smoking risk assessment performed?: Yes Alcohol Intake: current Alcohol Intake frequency: a few times a month Substance use type: does not use Adopted: No Caregiver/Support person: No Foster care: No Household members: significant other and children Housing: apartment Number of Children: 2 Communication Needs: Corrective Lenses Education Level: middle school Do you need help understanding health information?: Rarely current occupation: stay at home mom Pets and animals: Yes Pets and animals: cat(s) Sexually active: Yes Do you think of yourself as: straight/heterosexual Current gender identity: female What is your relationship status?: never How often do you talk on the phone with friends or family?: three or more times per week How often do you get together with friends or relatives?: three or more times per week Do you belong to any clubs or organized social groups?: no Panel score (0-1 are the most socially isolated patients): 1 What type of physical activity do you participate in: none Special home needs: No Seatbelt use: never Helmet use: No Drive intox or ride w/intox residential driver: No Do you feel safe in your relationship?: Yes PAWSS Have you Been Recently Intoxicated or Drunk Within the Last 30 days?: No Have you Ever Experienced Previous Episodes of Alcohol Withdrawal?: No Have you ever Experienced Withdrawal Seizures?: No Have you ever Experienced Delirium Tremens(DT)s?: No Have you ever undergone Alcohol Rehabilitation Treatment (i.e, inpt ot outpatient treatment programs)?: No Have you ever Experienced Blackouts?: No Have you ever Combined Alcohol with other Downers within the last 90 days?: No Have you ever Combined Alcohol with any other Substance of Abuse during the last 90 days?: No Result: 0 Exam Const General: no acute distress Orientation: alert HENMT Head: normal to inspection Ears: external ears normal General nose exam: external nose normal Mouth: moist mucous membranes Eyes General: appearance normal, both eyes and all related structures Neck Neck: normal visual inspection Resp Effort & Inspection: normal respiratory effort and able to speak in complete sentences Cardio Rate: regular rate Skin Rashes: rashes noted Neuro General: patient alert and patient oriented x3 Extrem General: normal to inspection Psych Mental Status: mental status grossly normal Course Vital Signs Vital signs: Vital Signs Temperature 36.2 C L 10/13/23 18:41 Pulse 103 H 10/13/23 18:41 Respiratory Rate 18 10/13/23 18:41 Blood Pressure 150/88 H 10/13/23 18:41 Pulse Oximetry 99 10/13/23 18:41 Temperature 36.2 C L 10/13/23 18:41 Temperature Source Temporal Artery Scan 10/13/23 18:41 Pulse 103 H 10/13/23 18:41 Respiratory Rate 18 10/13/23 18:41 Respiratory Effort Normal 10/13/23 18:44 Blood Pressure 150/88 H 10/13/23 18:41 Blood Pressure Position Sitting 10/13/23 18:41 Pulse Oximetry 99 10/13/23 18:41 Oxygen Delivery Method Room Air 10/13/23 18:41 Oxygen Flow Rate 0 10/13/23 18:41 Pain Level 6 10/13/23 18:41 Medical Decision Making 28 yo female who states she has a history of abscesses and skin infections under the lower abdominal fold comes in with 3 days of redness and drainage from the lower abdomen skin. She denies fevers chills or severe pain. No distress on exam, speaking clearly. She has 3x4cm erythema on the lower mid abdomen, no fluctuance and on bedside u/s has no visible abscess, she does have an area in the center that she drained herself and said she had jac purulent material earlier. She has no severe tenderness. Given well appearance and exam doubt sepsis or nec fasc. Will treat with bactrim and advised to f/u with pcp if not improving and return precautions given Differential Diagnosis Differential Diagnosis: cellulitis, abscess Quality:SDOH Health Related Social Needs: No Data to Display Discharge Plan Disposition Patient Disposition: Home Discharge Details Clinical Impression: Abdominal wall cellulitis, Cellulitis Primary Care Provider: Aishwarya Ardon ED Provider: Tyson Glover Home Meds and New Rx's Prescriptions: New sulfamethoxazole-trimethoprim [Bactrim DS] 800-160 mg tablet 1 tab PO BID Qty: 14 0RF Continued ketoconazole 2 % shampoo 1 applic topical Q14D PRN (Reason: seborrhea) Qty: 120 3RF spironolactone 25 mg tablet 12.5 mg PO DAILY Trulicity 0.75 mg/0.5 mL pen injector 0.75 mg subcut QWEEK dextroamphetamine-amphetamine 20 mg tablet 20 mg PO TID MDD 60mg Qty: 84 0RF Rx Instructions: administer doses at least 4-6 hours apart dextroamphetamine-amphetamine 20 mg tablet 20 mg PO TID MDD 60mg Qty: 84 0RF Rx Instructions: administer doses at least 4-6 hours apart dextroamphetamine-amphetamine 20 mg tablet 20 mg PO TID MDD 60mg Qty: 84 0RF Rx Instructions: administer doses at least 4-6 hours apart naltrexone 4.5 mg PO DAILY Rx Instructions: 03/25/23 cap qd x 1 week, the increase to 2 caps qd x 1 week, the increase to 3 caps/day omeprazole 40 mg capsule,delayed release(DR/EC) 40 mg PO DAILY Qty: 90 1RF pregabalin 150 mg capsule 150 mg PO TID Qty: 84 2RF potassium chloride 20 mEq tablet extended release 20 meq PO DAILY Qty: 60 6RF bupropion HCl [Wellbutrin XL] 300 mg tablet extended release 24 hr 300 mg PO QAM Qty: 90 3RF cyclobenzaprine 5 mg tablet 5 mg PO TID PRN (Reason: muscle spasm) Qty: 30 0RF albuterol sulfate [ProAir HFA] 200 PUFF/INH HFA aerosol inhaler 2 puff Inhalation Q4H PRN PRN Discharge Instructions Instructions: Cellulitis (ED) Additional Instructions: You did not have a drainable abscess on exam today if not improving within a week follow up with your primary care provider if you feel more ill, have severe pain or fevers return to the emergency department
[2023-10-13] MEDS: Sulfameth/Trimeth DS TAB 1 TAB PO (19:10)
== END 2023-10-13 19:13 | disposition home or self-care (01) ==
PROVIDERS: Emergency Provider Emergency Medicine; PCP Nurse Practitioner
DX: L03.311 Cellulitis of abdominal wall (principal); E88.810 Metabolic syndrome; N18.2 Chronic kidney disease, stage 2 (mild); F17.200 Nicotine dependence, unspecified, uncomplicated
CPT/HCPCS: 99283

== ENCOUNTER 2024-11-01 09:47 | Outpatient (CLI) | payer MEDICAID, SELFPAY ==
--- NOTE | 2024-11-01 08:45 | DI.RAD_ITS ---
Exam(s) XR CHEST 2V PA LATERAL EXAM: XR CHEST 2V PA LATERAL CLINICAL HISTORY: SOB,cough, wheeze,r06.2,r05.9. TECHNIQUE: 2D digital imaging was performed. COMPARISON: CR CHEST 2 VIEWS PA,LAT from 04/15/2018 FINDINGS: 2 views: Heart size is normal. The mediastinum is not widened. There is slightly increased markings in both lower lobes, appearing more prominent than on the 2018 s tudy. Pleural effusions. IMPRESSION: Minimally increased markings in both lower lobes posterior basal segments. May represent vessels but does appears slightly more prominent than on the 2018 study.No pleural effusions DATA REPOSITORY: RADIATION DOSE DELIVERED:
== END 2024-11-01 10:07 ==
PROVIDERS: PCP Nurse Practitioner; Visit Provider Nurse Practitioner
DX: R05.9 Cough, unspecified (principal); R06.2 Wheezing
CPT/HCPCS: 71046

== ENCOUNTER 2025-04-20 09:26 | Emergency (ER) | payer MEDICAID, SELFPAY ==
[2025-04-20 09:30] VITALS: BP 129/79; PULSE 119; RESP 18; TEMP 37.8; O2SAT 94
--- NOTE | 2025-04-20 10:00 | W.ED.GENAD ---
Discharge Plan Disposition Patient Disposition: Home Condition: Good Discharge Details Clinical Impression: Avulsion of finger tip Primary Care Provider: Aishwarya Ardon ED Provider: Abel Hidalgo Home Meds and New Rx's Prescriptions: No Action ketoconazole 2 % shampoo 1 applic topical Q14D PRN (Reason: seborrhea) Qty: 120 3RF tizanidine 2 mg capsule 2 - 4 mg PO HS PRN albuterol sulfate 90 mcg/actuation HFA aerosol inhaler 2 puff Inhalation Q4H PRN PRN (Reason: shortness of breath or wheezing) Qty: 8.5 3RF Rx Instructions: Use with spacer. Rinse after use. dextroamphetamine-amphetamine 20 mg tablet 20 mg PO TID MDD 60mg Qty: 84 0RF Rx Instructions: administer doses at least 4-6 hours apart dextroamphetamine-amphetamine 20 mg tablet 20 mg PO TID MDD 60mg Qty: 84 0RF Rx Instructions: administer doses at least 4-6 hours apart dextroamphetamine-amphetamine 20 mg tablet 20 mg PO TID MDD 60mg Qty: 84 0RF Rx Instructions: administer doses at least 4-6 hours apart bupropion HCl [Wellbutrin XL] 300 mg tablet extended release 24 hr 300 mg PO QAM Qty: 90 3RF potassium chloride 20 mEq tablet extended release 20 meq PO DAILY Qty: 60 6RF nicotine (polacrilex) 2 mg gum 2 mg buccal Q1H Qty: 200 6RF omeprazole 40 mg capsule,delayed release(DR/EC) See Rx Instructions .ROUTE .COMPLEX Qty: 90 3RF Dose Instruction: TAKE 1 CAPSULE BY MOUTH DAILY Rx Instructions: TAKE 1 CAPSULE BY MOUTH DAILY silver sulfadiazine [Silvadene] 1 % cream 1 applic topical BID Qty: 85 1RF Rx Instructions: apply a 1.5 mm thickness cyclobenzaprine 5 mg tablet 5 mg PO TID PRN naltrexone 6 mg PO QHS pregabalin 150 mg capsule 150 mg PO TID Qty: 90 5RF albuterol sulfate [ProAir HFA] 200 PUFF/INH HFA aerosol inhaler 2 puff Inhalation Q4H PRN PRN Discharge Instructions Instructions: Common Finger Injuries ED Additional Instructions: Watch for any signs of infection and return immediately to the emergency department if these occur. Otherwise keep wound clean and dry. Return to the emergency department as needed or follow-up with primary care provider Discharge Data Discharge Date/Time-TO BE ENTERED AT DEPARTURE: 04/20/25 10:56 HPI General Mode of arrival: ambulatory. Date/Time Provider Initiated Documentation: 04/20/25 09:44. Limitations to Documentation: no limitations. Information obtained by: patient and family. History of Present Illness 29 year old F presents to the emergency department with the chief complaint of Right ring finger laceration, described as moderate, Patient started experiencing this hour(s) (1) and it has been constant. No relieving factors improve symptom(s), No exacerbating factors reported . Patient notes no other symptoms.. Patient did receive the following treatments prior to arrival, other (Copious irrigation) Related Data Home Medications ?Medication ?Instructions ?Recorded ?Confirmed albuterol sulfate 90 mcg/actuation 2 puff inhalation Q4H PRN PRN 04/15/18 04/20/25 aerosol inhaler (ProAir HFA) ketoconazole 2 % shampoo 1 applic topical Q14D PRN 07/02/22 04/20/25 seborrhea #120 mL tizanidine 2 mg capsule 2 - 4 mg PO HS PRN 11/16/23 04/20/25 cyclobenzaprine 5 mg tablet 5 mg PO TID PRN 01/18/24 04/20/25 naltrexone 6 mg PO QHS 04/18/24 04/20/25 bupropion HCl 300 mg 24 hr tablet, 300 mg PO QAM depression #90 tabs 08/09/24 04/20/25 extended release (Wellbutrin XL) potassium chloride 20 mEq 20 meq PO DAILY #60 tabs 08/09/24 04/20/25 tablet,extended release albuterol sulfate 90 mcg/actuation 2 puff inhalation Q4H PRN PRN 10/24/24 04/20/25 aerosol inhaler shortness of breath or wheezing #8.5 grams nicotine (polacrilex) 2 mg gum 2 mg buccal Q1H #200 ea 11/08/24 04/20/25 omeprazole 40 mg capsule,delayed See Rx Instructions .Route 11/08/24 04/20/25 release .COMPLEX #90 caps silver sulfadiazine 1 % topical 1 applic topical BID #85 grams 01/18/25 04/20/25 cream (Silvadene) pregabalin 150 mg capsule 150 mg PO TID #90 caps 02/16/25 04/20/25 dextroamphetamine-amphetamine 20 20 mg PO TID #84 tabs 04/06/25 04/20/25 mg tablet dextroamphetamine-amphetamine 20 20 mg PO TID #84 tabs 04/06/25 04/20/25 mg tablet dextroamphetamine-amphetamine 20 20 mg PO TID #84 tabs 04/06/25 04/20/25 mg tablet Previous Rx's ?Medication ?Instructions ?Recorded ketoconazole 2 % shampoo 1 applic topical Q14D PRN 07/02/22 seborrhea #120 mL bupropion HCl 300 mg 24 hr tablet, 300 mg PO QAM depression #90 tabs 08/09/24 extended release (Wellbutrin XL) potassium chloride 20 mEq 20 meq PO DAILY #60 tabs 08/09/24 tablet,extended release albuterol sulfate 90 mcg/actuation 2 puff inhalation Q4H PRN PRN 10/24/24 aerosol inhaler shortness of breath or wheezing #8.5 grams nicotine (polacrilex) 2 mg gum 2 mg buccal Q1H #200 ea 11/08/24 omeprazole 40 mg capsule,delayed See Rx Instructions .Route 11/08/24 release .COMPLEX #90 caps silver sulfadiazine 1 % topical 1 applic topical BID #85 grams 01/18/25 cream (Silvadene) pregabalin 150 mg capsule 150 mg PO TID #90 caps 02/16/25 dextroamphetamine-amphetamine 20 20 mg PO TID #84 tabs 04/06/25 mg tablet dextroamphetamine-amphetamine 20 20 mg PO TID #84 tabs 04/06/25 mg tablet dextroamphetamine-amphetamine 20 20 mg PO TID #84 tabs 04/06/25 mg tablet Allergies Allergy/AdvReac Type Severity Reaction Status Date / Time acetaminophen (From Percocet) Allergy Intermediate hives Verified 04/20/25 09:35 lamotrigine Allergy Intermediate Skin Rash Verified 04/20/25 09:35 oxycodone (From Percocet) Allergy Intermediate hives Verified 04/20/25 09:35 dulaglutide (From Trulicity) AdvReac Intermediate sulfur Verified 04/20/25 09:35 taste and smell when burping sertraline AdvReac Unknown Paranoia Verified 04/20/25 09:35 General Stated Complaint: Laceration FARHANA: 4 Review of Systems Cardiovascular Cardiovascular: Denies syncope and Denies lightheadedness Musculoskeletal Musculoskeletal: Denies deformity, Denies limited range of motion and Denies numbness Integumentary/Breasts Skin/Breast: Reports as per HPI Neurologic Neurologic: Denies syncope, Denies numbness and Denies paresthesias Exam Const General: cooperative and no acute distress Orientation: alert, awake and oriented x3 Limitations: mental status not altered Resp Effort & Inspection: normal respiratory effort and able to speak in complete sentences Cardio Rate: regular rate Rhythm: regular rhythm Neuro General: patient alert, patient awake, patient oriented x3, tone normal, moves all extremities, normal light touch, pain and propioception and no focal motor deficits Motor: no movement abnormalities noted Sensory Exam: no sensory deficits noted Extrem General: normal exam except as noted Right upper extremity: hand Details: laceration 4th digit dorsal aspect distal Details: avulsion (Fingertip avulsion 1/4 of tip) and involving subcutaneous tissue Course Vital Signs Vital signs: Vital Signs Temperature 37.8 C H 04/20/25 09:30 Pulse 119 H 04/20/25 09:30 Respiratory Rate 18 04/20/25 09:30 Blood Pressure 129/79 04/20/25 09:30 Pulse Oximetry 94 04/20/25 09:30 Temperature 37.8 C H 04/20/25 09:30 Temperature Source Tympanic 04/20/25 09:30 Pulse 119 H 04/20/25 09:30 Respiratory Rate 18 04/20/25 09:30 Blood Pressure 129/79 04/20/25 09:30 Blood Pressure Position Sitting 04/20/25 09:30 Pulse Oximetry 94 04/20/25 09:30 Oxygen Delivery Method Room Air 04/20/25 09:30 Oxygen Flow Rate 0 04/20/25 09:30 Pain Level 7 04/20/25 09:34 Procedure Laceration Laceration 1: Date of Procedure: 04/20/25 Time of procedure: 10:30 Provider that performed the procedure: Abel Resendiz Time Out Performed: Yes Patient Consented: Verbally Site: hand Side (If applicable): right Description: linear and clean Depth: simple, single layer Local anesthetic: Lidocaine 1% Amount of anesthesia used (mL): 1.8 Pre-repair:: wound explored, irrigated extensively and deep structures intact Skin layer closed with: other (Skin adhesive) Medical Decision Making Patient presenting to the emergency department for right ring finger tip avulsion from slicing cucumbers with a mandolin. Patient denies any other injury or trauma denies any other associated symptoms. Exam shows fingertip avulsion with some removal of his distal nail otherwise unremarkable exam Ring block was performed and tourniquet was applied wound was thoroughly irrigated and cleansed chlorhexidine. Skin adhesive was applied to the avulsion as this is a nonrepairable. Was able to stop using this technique and patient was instructed on wound care along with monitoring for signs of infection After discussion of diagnosis and plan of care patient has no further needs, questions, or concerns and states clear understanding to return to the emergency department for any worsening symptoms. This documentation was generated using Versafeation system, please disregard any oddities of phrase or misspellings.. PFSH All Active Problems (Updated 04/20/25 @ 10:44 by Abel Hidalgo NP) Avulsion of finger tip (Acute) Right wrist sprain (Acute) Chronic sacroiliac pain (Acute ~03/2024) both sides - seen at [facility] Arthralgia of both hands (Acute ~12/2023) 12/31/23 [facility] Unspecified essential hypertension (Chronic) [facility] [place] Nephrology 10/19/23 Hypoglycemia (Acute) [facility] [place] Nephrology 10/19/23 Chronic kidney disease, stage 3a (Acute) [facility] [place] Nephrology 10/19/23 Sacroiliac joint dysfunction of both sides (Acute) 03/25/23 [facility] 02/02/25 F/U [facility] Mild obstructive sleep apnea (Acute) 03/12/23 [facility] Sleep note 03/13/23 Polysomnogram Study Refraction error (Acute ~11/2022) 11/25/22 Ophth Drusen (degenerative) of macula, bilateral (Acute ~11/2022) 11/25/22 Oph Drusen of both optic discs (Acute ~11/2022) 11/25/22 Oph Insulin resistance (Acute) Nonalcoholic fatty liver disease (Chronic) Hypothyroidism, unspecified (Chronic ~06/2022) Vitamin D deficiency, unspecified (Acute ~06/2022) Chronic kidney disease, stage 2 (mild) (Acute) 07/03/22 02/03/23 Nephrology Abnormal LFTs (Acute ~06/2022) Tobacco use (Acute) Class 3 severe obesity due to excess calories with body mass index (BMI) of 40.0 to 44.9 in adult (Acute ~06/2022) 07/02/22 [facility] Cocaine abuse (Acute) Snoring (Acute) Daytime somnolence (Acute) Mood disorder (Acute) Abnormal blood chemistry (Acute) Interstitial nephritis (Acute) Social anxiety disorder (Acute) Generalized anxiety disorder (Acute) Major depressive disorder, recurrent, moderate (Acute) ADHD (attention deficit hyperactivity disorder), combined type (Acute) Myofascial pain (Acute) 02/03/25 f/u [facility] Sacroiliac joint dysfunction (Acute) Spondylosis of lumbar region without myelopathy or radiculopathy (Acute) Chronic midline low back pain without sciatica (Acute) Hypercalcemia (Acute) 08/2020 [facility] [place] Nephrology- mild Renal insufficiency (Chronic) 08/2020 [facility] [place] Nephrology-planning on kidney biopsy Hidradenitis suppurativa (Acute) GRACE (acute kidney injury) (Acute) Hypokalemia (Acute) Abnormal blood chemistry (Acute) Myalgia (Acute) Joint pain (Acute) Tobacco abuse (Chronic) Urinary incontinence (Acute) Chronic sinusitis (Acute) Gastroesophageal reflux (Chronic) Fatigue (Acute) Asthma (Chronic ~10/24/24) Cholecystitis (Acute) Medical History Nicotine use disorder Left knee dislocation (~05/2024) 06/07/24 [facility] - home exercises and brace. No surgical intervention at this time Depressive disorder Surgical History Hx of cholecystectomy (~05/19/13) Hx of knee surgery (~08/10/14) Medial patellofemoral ligament reconstruction by History of arthroscopic surgery of elbow Family History Maternal Grandmother Hypertension COPD (chronic obstructive pulmonary disease) Father Diabetes Hyperlipidemia Hypertension Depression Paternal Grandfather Diabetes Maternal Grandfather Diabetes Hypertension COPD (chronic obstructive pulmonary disease) Lung cancer Mother Diabetes Anxiety Bipolar disorder Other Obesity Social History Smoking/Tobacco Use Status: Current every day Tobacco: How many years used: 13 Quit status: considering quitting Second Hand Exposure: Yes Smoking risk assessment performed?: Yes Alcohol Intake: current Alcohol Intake frequency: a few times a month Substance use type: does not use Adopted: No Caregiver/Support person: No Foster care: No Household members: significant other and children Housing: apartment Number of Children: 2 Communication Needs: Corrective Lenses Education Level: middle school Do you need help understanding health information?: Rarely current occupation: stay at home mom Pets and animals: Yes Pets and animals: cat(s) Sexually active: Yes Do you think of yourself as: straight/heterosexual Current gender identity: female What is your relationship status?: never How often do you talk on the phone with friends or family?: three or more times per week How often do you get together with friends or relatives?: three or more times per week Do you belong to any clubs or organized social groups?: no Panel score (0-1 are the most socially isolated patients): 1 What type of physical activity do you participate in: none Special home needs: No Seatbelt use: never Helmet use: No Drive intox or ride w/intox shuttle bus driver: No Do you feel safe in your relationship?: Yes
[2025-04-20] MEDS: Lidocaine 1% Pres-Free 5 ML VIAL IJ (10:02)
[2025-04-20 10:55] VITALS: BP 129/79; PULSE 107; RESP 17; O2SAT 97
== END 2025-04-20 10:56 | disposition home or self-care (01) ==
PROVIDERS: Emergency Provider Nurse Practitioner Family; PCP Nurse Practitioner
DX: S61.204A Unspecified open wound of right ring finger without damage to nail, initial encounter (principal); N18.31 Chronic kidney disease, stage 3a; F17.210 Nicotine dependence, cigarettes, uncomplicated; W27.4XXA Contact with kitchen utensil, initial encounter; Y93.G1 Activity, food preparation and clean up; Y92.89 Other specified places as the place of occurrence of the external cause
CPT/HCPCS: 99283; J2003